=== PATIENT | male | born 1940 | race Caucasian/White ===

== ENCOUNTER 2016-10-15 10:03 | Day surgery (SDC) | payer MEDICARE ==
[~2016-10-15 10:03] MED LIST: ALDACTONE25 M1 PO; AMITRIPTYLINE H50 M1 PO; ATENOLOL50 M1 PO; ATENOLOL50 MG PO; AUGMENTIN 875-1 EAC2 PO; CEFTIN500 M1 PO; COREG12.5 M1 PO; CULTURELLE1 EAC1 PO; DARVOCET-N 1001 TAB PO; ELAVIL25 MG PO; ENDOCET 5-3251 EACH PO; GENERLAC10 GM/15 M PO; LANTUS100 UNITS/ SC; LASIX40 M1 PO; LEVAQUIN750 M1 PO; LYRICA100 MG/CAP PO; LYRICA150 MG/CAP PO; LYRICA50 MG/CAP PO; LYRICA75 MG/CAP PO; MELATONIN10 M4 PO; MILLIPRED5 M1 PO; NORCO 5-325 TA1 EACH PO; PERCOCET 5-3251 EACH PO; POTASSIUM CHLO20 ME3 PO; PREDNISOLONE5 MG PO; PREDNISONE10 M1 PO; PROTONIX40 M2 PO; REGLAN10 M2 PO; SURFAK240 M2 PO; VALERIAN450 MG PO; VICODIN 5-3001 EAC2 PO; ZANTAC150 M1 PO; ZESTRIL2.5 M3 PO
== END 2016-10-15 14:40 ==
LOC: ENDOS 10:03 → SHSC 10:05 → PACU 13:25 → SHSC 13:40
PROC: 0DJ08ZZ Inspection of Upper Intestinal Tract, Via Natural or Artificial Opening Endoscopic (ICD-10-PCS; principal; 2016-10-15)
DX: R63.4 Abnormal weight loss (principal); I11.0 Hypertensive heart disease with heart failure; I50.9 Heart failure, unspecified; M06.9 Rheumatoid arthritis, unspecified; E11.42 Type 2 diabetes mellitus with diabetic polyneuropathy; K21.9 Gastro-esophageal reflux disease without esophagitis; Z79.4 Long term (current) use of insulin; Z79.52 Long term (current) use of systemic steroids; Z79.899 Other long term (current) drug therapy; Z91.010 Allergy to peanuts; Z90.3 Acquired absence of stomach [part of]; Z90.49 Acquired absence of other specified parts of digestive tract; Z98.0 Intestinal bypass and anastomosis status; Z98.890 Other specified postprocedural states